=== PATIENT | female | born 1995 | race Native Hawaiian/Other Pacific Islander ===

== ENCOUNTER 2023-02-20 08:05 | Inpatient (IN) | payer BC ==
[2023-02-20] VITALS (48 sets, daily range): BP systolic 89–173; BP diastolic 54–96; PULSE 75–127; TEMP 97.8–98.8
[~2023-02-20] VITALS: Ht 162.6 cm; Wt 106.8 kg
[~2023-02-20 08:05] MED LIST: CEPHALEXIN500 M1 PO; METROGEL-VAGINA0.75% TP; NO HOME MEDICATIONS; NORCO 325 MG-51 TAB PO; OMNICEF 300MG300 MG PO; PEPCID 20MG TAB20 MG PO; PHENERGAN 25 TA25 MG PO; ZOFRAN 4MG T4 MG/TAB PO
--- NOTE | 2023-02-20 08:10 | NUR ---
PT AMBULATORY TO LR2. CHANGED INTO CLEAN GOWN. PT DENIES ANY VAGINAL BLEEDING, LEAKING OF FLUID, OR DECREASED MOVEMENT. PT CAME IN COMPLAINING OF CONTRACTIONS. FHR MONITOR/TOCO APPLIED. SVE AT THIS TIME . PT ORIENTED TO ROOM. POC DISCUSSED. PT VERBALIZES UNDERSTANDING.
--- NOTE | 2023-02-20 08:25 | NUR ---
DR PABLO ON UNIT. THIS RN GIVES DR PABLO REPORT. DR PABLO GIVES VERBAL ORDERS TO ADMIT PT.
[2023-02-20 08:47] LABS: BASO % 0.2 % (0.0-2.0); EOS # 0.1 K/mm3 (0.0-0.7); EOS % 0.7 % (0.0-4.0); GRAN # 6.2 K/mm3 (1.4-6.5); GRAN % 70.9 % (42.2-75.2); HEMOGLOBIN 11.4 g/dl (12.5-16.0); LYMPH # 1.8 K/mm3 (1.2-3.4); LYMPH % 20.5 % (20.0-51.0); MEAN CELL VOLUME 80 fl (80.0-100.0); MEAN CORPUSCULAR HEMOGLOBIN 27 pg (27-31); MEAN CORPUSCULAR HGB CONC 34 g/dl (33.0-37.0); MEAN PLATELET VOLUME 9.6 fl (7.4-10.4); MONO # 0.6 K/mm3 (0.1-0.6); MONO % 6.9 % (1.7-9.3); PLATELET COUNT 283 K/mm3 (130-400); RED BLOOD COUNT 4.18 M/mm3 (4.10-5.30)
[2023-02-20 08:48] LABS: HEMATOCRIT 33.6 % (37.0-47.0)
--- NOTE | 2023-02-20 09:15 | NUR ---
THIS RN GIVES REPORT TO Cullen FLYNN RN
--- NOTE | 2023-02-20 09:30 | NUR ---
0917Lottie Chin CRNA at bedside for epidural placement. Pt repositioned to sitting on side of bed. FHR and UCs not tracing well due to maternal position. O2 sat monitor on and tracing maternal HR.
--- NOTE | 2023-02-20 10:00 | NUR ---
0943- Took break from epidural placement, FHR noted 145. 0952- Test dose, see anesthesia record. 0958- Pt assisted to semi-fowlers with WL. EFM and TOCO adjusted to tracing well.
--- NOTE | 2023-02-20 10:30 | NUR ---
1025- This RN called to bedside by Pt, reports being nausous. BP 94/56. HOB lowered, IVF bolus initiated. Ephedrine given per FIFI Chin. After approx 5mins Pt reports nausea has improved. BP 100/57.
--- NOTE | 2023-02-20 19:45 | NUR ---
Pt able to lift and hold each leg off of bed for 5 seconds. Pt positioned to sitting on edge of bed. Epidural catheter removed. Pt tolerated well. Tip smooth, blue, and intact. Pt able to ambulate to bathroom with standby assistance. Able to void 700 mL bloody urine. Pericare explained and provided. Clean gown on. Mesh panties and peripad applied. Pt ambulated to room 207 with and belongings.
[2023-02-21 00:35] VITALS: BP 118/61; PULSE 95; TEMP 98.2
[2023-02-21 04:45] VITALS: BP 109/47; PULSE 98; TEMP 98
[2023-02-21 06:55] VITALS: BP 120/59; PULSE 102; TEMP 97.7
--- NOTE | 2023-02-21 09:58 | NUR ---
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
[2023-02-21] MEDS ORDERED: IBU800 M1 PO (10:00)
[2023-02-21 16:00] VITALS: BP 122/57; PULSE 91; TEMP 97.9
== END 2023-02-21 19:30 | disposition home or self-care (01) | DRG 806 ==
LOC: LDRO 08:05 → LDR 08:38 → OB 08:38
PROVIDERS: ADMIT Student in an Organized Health Care Education/Training Program
PROC: 10E0XZZ Delivery of Products of Conception, External Approach (ICD-10-PCS; principal; 2023-02-20)
PROC: 0UQG7ZZ Repair Vagina, Via Natural or Artificial Opening (ICD-10-PCS; 2023-02-20)
PROC: 4A1H7CZ Monitoring of Products of Conception, Cardiac Rate, Via Natural or Artificial Opening (ICD-10-PCS; 2023-02-20)
PROC: 4A1H7FZ Monitoring of Products of Conception, Cardiac Rhythm, Via Natural or Artificial Opening (ICD-10-PCS; 2023-02-20)
PROC: 3E033VJ Introduction of Other Hormone into Peripheral Vein, Percutaneous Approach (ICD-10-PCS; 2023-02-20)
DX: O48.0 Post-term pregnancy (principal); O71.4 Obstetric high vaginal laceration alone; Z37.0 Single live birth; O75.89 Other specified complications of labor and delivery; O99.214 Obesity complicating childbirth; O77.0 Labor and delivery complicated by meconium in amniotic fluid; O69.2XX0 Labor and delivery complicated by other cord entanglement, with compression, not applicable or unspecified; O69.81X0 Labor and delivery complicated by cord around neck, without compression, not applicable or unspecified; Z3A.41 41 weeks gestation of pregnancy
CPT/HCPCS: J2210; J2795; J7120